=== PATIENT | female | born 1950 | race Caucasian/White ===

== ENCOUNTER 2024-01-07 22:51 | Emergency (ER) | payer MEDICARE ==
--- NOTE | 2024-01-07 23:07 | ED ---
General Adult HPI - General Source: patient Mode of arrival: EMS <Edwin Parekh - Last Filed: 01/07/24 23:07> - General Source: patient, RN notes reviewed Mode of arrival: EMS Limitations: no limitations <Lillie Nava - Last Filed: 01/08/24 03:21> - General Stated complaint: Pelvic pain Time Seen by Provider: 01/07/24 23:06 - History of Present Illness Initial comments: 73-year-old female presenting to the ED with a chief complaint of hip/leg pain. Patient states yesterday was getting out of bed and started to notice pain of her right hip/right leg. No other injury or trauma. Denies fever or chills. (Edwin Parekh) 73-year-old female presenting to the ER with a chief complaint of right hip pain. Patient states this been going on for the past 36 hours and has been persistent. She endorses most of her pain over the greater trochanter. Denies any known injuries or traumas. Denies any paresthesias. She does state the pain radiates down her leg when it occurs. She has been taking ibuprofen without relief. Denies any fevers, chills, chest pain, shortness of breath, abdominal pain or peripheral edema. (Lillie Nava) - Related Data Previous Rx's Medication Instructions Recorded Lidocaine 5% Patch [Lidoderm 5% 1 patch TOPICAL DAILY #10 patch 01/08/24 Patch] Allergies Allergy/AdvReac Type Severity Reaction Status Date / Time acetaminophen [From Tylenol] Allergy Nausea & Verified 01/08/24 01:37 Vomiting egg Allergy Unknown Verified 01/07/24 23:05 antibiotics Allergy Unknown Uncoded 01/07/24 23:05 Review of Systems ROS Other: All systems not noted in ROS Statement are negative. <Edwin Parekh - Last Filed: 01/07/24 23:07> ROS Other: All systems not noted in ROS Statement are negative. <Lillie Nava - Last Filed: 01/08/24 03:21> ROS Statement: Those systems with pertinent positive or pertinent negative responses have been documented in the HPI. Past Medical History Past Medical History: Atrial Fibrillation History of Any Multi-Drug Resistant Organisms: None Reported Additional Past Surgical History / Comment(s): lymphoma removed Past Psychological History: No Psychological Hx Reported Smoking Status: Never smoker Past Alcohol Use History: None Reported Past Drug Use History: None Reported <Edwin Parekh - Last Filed: 01/07/24 23:07> General Exam <Edwin Parekh - Last Filed: 01/07/24 23:07> General appearance: alert, in no apparent distress Respiratory exam: Present: normal lung sounds bilaterally. Absent: respiratory distress, wheezes, rales, rhonchi, stridor Cardiovascular Exam: Present: regular rate, normal rhythm, normal heart sounds. Absent: systolic murmur, diastolic murmur, rubs, gallop, clicks Extremities exam: Present: tenderness (Right greater trochanter. Positive right straight leg roll. Patient unable to raise leg off of bed. 2+ bilateral dorsalis pedis pulse. Sensation intact.) Skin exam: Present: warm, dry, intact, normal color, other (Brawny discoloration to bilateral shins and calfs.) <Lillie Nava - Last Filed: 01/08/24 03:21> - General Exam Comments Initial Comments: Visual Physical Exam Vital signs reviewed General: Well-appearing, nontoxic, no acute distress. Head: Normocephalic, atraumatic Eyes: PERRLA, EOMI ENT: Airway patent Chest: Nonlabored breathing Skin: No visual rash, normal skin tone Neuro: Alert and oriented 3 Musculoskeletal: No gross abnormalities (Edwin Parekh) Course Vital Signs 01/07/24 01/08/24 22:56 03:01 Temperature 97.6 F 98.0 F Pulse Rate 75 65 Respiratory 18 18 Rate Blood Pressure 124/89 109/73 O2 Sat by Pulse 97 97 Oximetry Medical Decision Making <Edwin Parekh - Last Filed: 01/07/24 23:07> - Radiology Data Radiology results: report reviewed, image reviewed <Lillie Nava - Last Filed: 01/08/24 03:21> - Medical Decision Making Quicknote portion performed. Signed Edwin Parekh PA-C (Edwin Parekh) Was pt. sent in by a medical professional or institution (, PA, NEGATIVE ASSEMBLER, urgent care, hospital, or senior living...) When possible be specific @ -No Did you speak to anyone other than the patient for history (EMS, parent, family, police, friend...)? What history was obtained from this source @ -No Did you review nursing and triage notes (agree or disagree)? Why? @ -I reviewed and agree with nursing and triage notes Were old charts reviewed (outside hosp., previous admission, EMS record, old EKG, old radiological studies, urgent care reports/EKG's, senior living records)? Report findings @ -No old charts were reviewed Differential Diagnosis (chest pain, altered mental status, abdominal pain women, abdominal pain men, vaginal bleeding, weakness, fever, dyspnea, syncope, headache, dizziness, GI bleed, back pain, seizure, CVA, palpatations, mental health, musculoskeletal)? @ -Differential Musculoskeletal: Muscular strain, contusion, ligament sprain, fracture, arthritis, septic arthritis, bursitis, cellulitis, muscle spasm, nerve compression, DVT, arterial occlusion, herpes zoster, electrolyte abnormality, tumor.... This is not meant to be in all inclusive list EKG interpreted by me (3pts min.). @ -None X-rays interpreted by me (1pt min.). @ -Hip AP pelvis x-rays interpreted by me significant for superior lateral joint space narrowing consistent with osteoarthritis.. CT interpreted by me (1pt min.). @ -None done U/S interpreted by me (1pt. min.). @ -None done What testing was considered but not performed or refused? (CT, X-rays, U/S, labs)? Why? @ -None What meds were considered but not given or refused? Why? @ -None Did you discuss the management of the patient with other professionals (professionals i.e. , PA, NEGATIVE ASSEMBLER, lab, RT, psych nurse, social work job titles, associate professor of physics, teacher, human resource officer, manager of case)? Give summary @ -No Was smoking cessation discussed for >3mins.? @ -No Was critical care preformed (if so, how long)? @ -No Were there social determinants of health that impacted care today? How? (Homelessness, low income, unemployed, alcoholism, drug addiction, transportation, low edu. Level, literacy, decrease access to med. care, assisted, rehab)? @ -No Was there de-escalation of care discussed even if they declined (Discuss DNR or withdrawal of care, Hospice)? DNR status @ -No What co-morbidities impacted this encounter? (DM, HTN, Smoking, COPD, CAD, Cancer, CVA, ARF, Chemo, Hep., AIDS, mental health diagnosis, sleep apnea, morbid obesity)? @ -Obese Was patient admitted / discharged? Hospital course, mention meds given and route, prescriptions, significant lab abnormalities, going to OR and other pertinent info. @ -Discharge. 73-year-old female presented to the ER with chief complaint of right hip pain. History and physical exam completed. Vitals stable. Patient in no signs acute distress and nontoxic-appearing. Bilateral lower extremities neurovascular intact. Positive right leg roll. X-rays obtained significant for osteoarthritis. Patient received IM Toradol with mild improvement of pain. Results discussed with patient, all questions answered. I advised follow-up with orthopedics, referral given. Lidocaine patches prescribed. Return parameters discussed. Patient discharged in stable condition with follow-up to PCP/orthopedics. Patient verbally expressed understanding and agreement with care plan. Case discussed with ED attending, Dr. Moses. Undiagnosed new problem with uncertain prognosis? @ -No Drug Therapy requiring intensive monitoring for toxicity (Heparin, Nitro, Insulin, Cardizem)? @ -No Were any procedures done? @ -No Diagnosis/symptom? @ -Osteoarthritis Acute, or Chronic, or Acute on Chronic? @ -Acute Uncomplicated (without systemic symptoms) or Complicated (systemic symptoms)? @ -Uncomplicated Side effects of treatment? @ -No Exacerbation, Progression, or Severe Exacerbation? @ -No Poses a threat to life or bodily function? How? (Chest pain, [place], [place], pneumonia, PE, COPD, DKA, ARF, appy, cholecystitis, CVA, Diverticulitis, Homicidal, Suicidal, threat to staff... and all critical care pts) @ -No (Lillie Nava) Disposition <Edwin Parekh - Last Filed: 01/07/24 23:07> Is patient prescribed a controlled substance at d/c from ED?: No Time of Disposition: 01:20 <Lillie Nava - Last Filed: 01/08/24 03:21> Clinical Impression: Osteoarthritis Disposition: HOME SELF-CARE Condition: Stable Instructions (If sedation given, give patient instructions): Osteoarthritis (DC) Additional Instructions: Follow-up with orthopedics. Return to the ER for any new or worsening concerns. Prescriptions: Lidocaine 5% Patch [Lidoderm 5% Patch] 1 patch TOPICAL DAILY #10 patch Referrals: Titus Mayer DO [Primary Care Provider] - 1-2 days Teodoro Vasquez MD [STAFF PHYSICIAN] - 1-2 days
[2024-01-07 23:17] VITALS: RESP 18
[2024-01-08] MEDS: KETOROLAC 15 MG/ML 1 ML VIAL IM STA (00:14)
--- NOTE | 2024-01-08 01:13 | XR ---
EXAM: XR Pelvis, 1 or 2 Views CLINICAL HISTORY: ITS.REASON XR Reason: pain TECHNIQUE: Frontal view of the pelvis. COMPARISON: No relevant prior studies available. FINDINGS: Bones/joints: Osseous demineralization. Superolateral joint space narrowing of the right hip joint, with [id number] articulation. No acute fracture or subluxation. Soft tissues: Unremarkable. IMPRESSION: Superolateral joint space narrowing of the right hip joint, with bone- on-bone articulation.
[2024-01-08] MEDS: ACET/COD 300 MG/30 MG STARTER PACK 6 TAB BTL PO STA (01:41)
[2024-01-08 03:37] VITALS: BP 109/73; PULSE 65; TEMP 98
== END 2024-01-08 03:03 | disposition home or self-care (01) ==
LOC: EC 22:51
DX: M16.11 Unilateral primary osteoarthritis, right hip (principal); E66.9 Obesity, unspecified; Z88.6 Allergy status to analgesic agent; Z91.012 Allergy to eggs; Z88.1 Allergy status to other antibiotic agents; Z68.37 Body mass index [BMI] 37.0-37.9, adult
CPT/HCPCS: 73502; 96372; 99284

== ENCOUNTER → 2025-03-15 | Outpatient (CLI) | payer MEDICARE, OTHER ==
--- NOTE | 2025-03-15 12:02 | XR ---
EXAMINATION TYPE: XR Hip Bilateral Complete DATE OF EXAM: 03/15/2025 11:47 AM INDICATION: Patient age:Female; 74 years old; Reason for study: [id number] HIP PAIN,LBP; [facility]. pain COMPARISON: Right hip radiograph 01/07/2024, CT scan of pelvis 11/11/2023 TECHNIQUE: Both hips were examined in the frontal and lateral projections. FINDINGS: Postsurgical changes from left hip arthroplasty. Hardware appears intact with appropriate a lignment. There is superior joint space narrowing with acetabular sclerosis and subchondral cystic ch anges of the right hip. Both SI joints appear intact. No acute fracture or dislocation. The soft tiss ues appear unremarkable. IMPRESSION: 1. No acute osseous pathology. 2. Moderate osteoarthritic changes of the right hip. 3. Postsurgical changes from left hip arthroplasty. [facility], , 03/15/2025 12:00 PM
--- NOTE | 2025-03-15 12:04 | XR ---
EXAMINATION TYPE: XR lumbosacral spine min 4V DATE OF EXAM: 03/15/2025 11:47 AM INDICATION: Patient age:Female; 74 years old; Reason for study: [id number] HIP PAIN,LBP; [facility]. pain COMPARISON: CT abdomen and pelvis 11/11/2023 TECHNIQUE: Frontal, lateral , bilateral oblique and coned in L5-S1 lateral views of the spine. FINDINGS: There are 5 lumbar type vertebral bodies identified. No evidence of any acute osseous patho logy. No evidence of loss of vertebral body height is seen. There is normal alignment of the lumbar vertebral bodies. Multilevel disc space narrowing with endplate sclerosis. IMPRESSION: 1. No acute process. 2. Mild multilevel degenerative disc disease of the lumbar spine. [facility], , 03/15/2025 12:02 PM
== END | disposition home or self-care (01) ==
LOC: RADXRYALE 10:18
PROVIDERS: ATTEND Physician Assistant
DX: M16.11 Unilateral primary osteoarthritis, right hip (principal); M51.360 Other intervertebral disc degeneration, lumbar region with discogenic back pain only; Z96.642 Presence of left artificial hip joint
CPT/HCPCS: 72110; 73521